=== PATIENT | male | born 1940 | race Caucasian/White ===

== ENCOUNTER 2018-05-15 14:32 | Observation (INO) | payer MEDICARE, BC ==
--- NOTE | 2018-05-15 15:08 | ED ---
General Adult HPI <PipoAv - Last Filed: 05/15/18 16:10> - General Source: patient, RN notes reviewed Mode of arrival: ambulatory Limitations: no limitations <Chandrakant Reyes - Last Filed: 05/15/18 16:29> - General Chief complaint: Urogenital Stated complaint: Male Time Seen by Provider: 05/15/18 14:56 - History of Present Illness Initial comments: Patient 77-year-old male presenting to emergency room today transferred from [facility] for urinary obstruction. Patient admits that he had not had a bowel movement in 5 or 6 days. He states that he was urinating just small amounts. Patient states that he went to [facility] had a CAT scan obtained. He states that they did place a Wynn catheter. He states he was able have a bowel movement here in the hospital. He states that is feeling much better at this time. He denies any pain or symptoms currently. Patient denies any recent fever, chills, shortness of breath, chest pain, back pain, nausea or vomiting, numbness or tingling, headaches or visual changes, or any other complaints. (Chandrakant Reyes) - Related Data Home Medications Medication Instructions Recorded Confirmed Glucosam/Chuckie-Msm1/C/Sabino/Bosw 1 tab PO DAILY 05/15/18 05/15/18 [Glucosamine-Chondroitin Tablet] Loratadine-Pseudoeph 5-120 mg 1 tab PO Q12HR 05/15/18 05/15/18 [Claritin-D 12 HR] Losartan/Hydrochlorothiazide 1 tab PO DAILY 05/15/18 05/15/18 [Losartan-Hctz 100-12.5 mg Tab] Lutein And Zeaxantin 1 tab PO DAILY 05/15/18 05/15/18 Montelukast [Singulair] 10 mg PO HS 05/15/18 05/15/18 Multivitamin [Men's Multi-Vitamin] 1 tab PO DAILY 05/15/18 05/15/18 Simvastatin [Zocor] 10 mg PO HS 05/15/18 05/15/18 busPIRone HCL 20 mg PO TID 05/15/18 05/15/18 Allergies Allergy/AdvReac Type Severity Reaction Status Date / Time No Known Allergies Allergy Verified 05/15/18 14:45 Review of Systems ROS Other: All systems not noted in ROS Statement are negative. <Av Foss - Last Filed: 05/15/18 16:10> ROS Other: All systems not noted in ROS Statement are negative. <Chandrakant Reyes - Last Filed: 05/15/18 16:29> ROS Statement: Those systems with pertinent positive or pertinent negative responses have been documented in the HPI. Past Medical History Past Medical History: Hyperlipidemia, Hypertension History of Any Multi-Drug Resistant Organisms: None Reported Past Surgical History: Cholecystectomy Past Psychological History: Anxiety Smoking Status: Former smoker Past Alcohol Use History: None Reported Past Drug Use History: None Reported <Chandrakant Reyes - Last Filed: 05/15/18 16:29> General Exam <Av Foss - Last Filed: 05/15/18 16:10> Limitations: no limitations <Chandrakant Reyes - Last Filed: 05/15/18 16:29> - General Exam Comments Initial Comments: General: The patient is awake and alert, in no distress, and does not appear acutely ill. Eye: Extra-ocular movements are intact. No nystagmus. There is normal conjunctiva bilaterally. No signs of icterus. Ears, nose, mouth and throat: There are moist mucous membranes and no oral lesions. Neck: The neck is supple, there is no tenderness or JVD. Cardiovascular: There is a regular rate and rhythm. No murmur, rub or gallop is appreciated. Respiratory: Lungs are clear to auscultation, respirations are non-labored, breath sounds are equal. No wheezes, stridor, rales, or rhonchi. Gastrointestinal: Soft, non-distended, non-tender abdomen without masses or organomegaly noted. There is no rebound or guarding present. No CVA tenderness. Musculoskeletal: Normal ROM, no tenderness. Sensation intact. Strength 5/5. Pulses equal bilaterally 2+. Neurological: A&O x 3. CN II-XII intact, There are no obvious motor or sensory deficits. Coordination appears grossly intact. Speech is normal. Skin: Skin is warm and dry and no rashes or lesions are noted. Psychiatric: Cooperative, appropriate mood & affect, normal judgment. (Chandrakant Reyes) Course <Av Foss - Last Filed: 05/15/18 16:10> <Chandrakant Reyes - Last Filed: 05/15/18 16:29> Vital Signs 05/15/18 14:32 Temperature 98.3 F Pulse Rate 76 Respiratory 18 Rate Blood Pressure 176/83 O2 Sat by Pulse 92 L Oximetry - Reevaluation(s) Reevaluation #1: 05/15/18 15:[address] report from [facility] shows 1. Enlargement of the prostate gland with bladder outlet obstruction and marked dilation of the urinary bladder with stasis of urine in the renal collecting system with resultant hydronephrosis. There is some palpitations within the urinary bladder which may be hemorrhagic or infectious bruits. There is a left-sided posterior bladder diverticulum. 2. Colonic diverticulosis without diverticulitis. There are air-fluid levels within the colon consistent with a nonspecific colitis or ileitis. Patient's CT reviewed and shows a 14,000 white count. BUN/creatinine were 45 and 1.9 respectively. (Chandrakant Reyes) Medical Decision Making - Lab Data Result diagrams: 05/15/18 15:40 05/15/18 15:40 <Av Foss - Last Filed: 05/15/18 16:10> - Lab Data Result diagrams: 05/15/18 15:40 05/15/18 15:40 <Chandrakant Reyes - Last Filed: 05/15/18 16:29> - Medical Decision Making Patient reevaluated by myself, Dr. Foss. Patient resting comfortably in bed. Abdomen soft and nontender. Patient states he feels much better since Wynn catheter insertion. Chart from [facility] was reviewed. Patient and family were updated on results. Case was discussed in detail with Dr. Serrato, who will admit for observation, no consults at this time. He states patient will likely follow-up with urology if being discharged tomorrow. I did review and agree with PA findings. This includes diagnostic interpretations treatment plan. ( Av Foss) - Lab Data Lab Results 05/15/18 05/15/18 05/15/18 Range/Units 15:40 15:40 15:40 WBC 11.2 H (3.8-10.6) k/uL RBC 4.93 (4.30-5.90) m/uL Hgb 14.5 (13.0-17.5) gm/dL Hct 44.4 (39.0-53.0) % MCV 90.0 (80.0-100.0) fL MCH 29.5 (25.0-35.0) pg MCHC 32.8 (31.0-37.0) g/dL RDW 12.7 (11.5-15.5) % Plt Count 309 (150-450) k/uL Neutrophils % 75 % Lymphocytes % 13 % Monocytes % 8 % Eosinophils % 2 % Basophils % 1 % Neutrophils # 8.3 H (1.3-7.7) k/uL Lymphocytes # 1.5 (1.0-4.8) k/uL Monocytes # 0.9 (0-1.0) k/uL Eosinophils # 0.2 (0-0.7) k/uL Basophils # 0.1 (0-0.2) k/uL PT 9.6 (9.0-12.0) sec INR 1.0 (<1.2) APTT 19.4 L (22.0-30.0) sec Sodium 138 (137-145) mmol/L Potassium 4.2 (3.5-5.1) mmol/L Chloride 100 (98-107) mmol/L Carbon Dioxide 26 (22-30) mmol/L Anion Gap 12 mmol/L BUN 40 H (9-20) mg/dL Creatinine 1.74 H (0.66-1.25) mg/dL Est GFR (CKD-EPI)AfAm 43 (>60 ml/min/1.73 sqM) Est GFR (CKD-EPI)NonAf 38 (>60 ml/min/1.73 sqM) Glucose 102 H (74-99) mg/dL Calcium 8.8 (8.4-10.2) mg/dL Total Bilirubin 0.9 (0.2-1.3) mg/dL AST 28 (17-59) U/L ALT 43 (21-72) U/L Alkaline Phosphatase 77 (38-126) U/L Total Protein 6.7 (6.3-8.2) g/dL Albumin 3.9 (3.5-5.0) g/dL Urine Color Urine Appearance (Clear) Urine pH (5.0-8.0) Ur Specific [place] (1.001-1.035) Urine Protein (Negative) Urine Glucose (UA) (Negative) Urine Ketones (Negative) Urine Blood (Negative) Urine Nitrite (Negative) Urine Bilirubin (Negative) Urine Urobilinogen (<2.0) mg/dL Ur Leukocyte Esterase (Negative) Urine RBC (0-5) /hpf Ur Squamous Epith Cells (0-4) /hpf Urine Bacteria (None) /hpf Urine Mucus (None) /hpf 05/15/18 Range/Units 15:40 WBC (3.8-10.6) k/uL RBC (4.30-5.90) m/uL Hgb (13.0-17.5) gm/dL Hct (39.0-53.0) % MCV (80.0-100.0) fL MCH (25.0-35.0) pg MCHC (31.0-37.0) g/dL RDW (11.5-15.5) % Plt Count (150-450) k/uL Neutrophils % % Lymphocytes % % Monocytes % % Eosinophils % % Basophils % % Neutrophils # (1.3-7.7) k/uL Lymphocytes # (1.0-4.8) k/uL Monocytes # (0-1.0) k/uL Eosinophils # (0-0.7) k/uL Basophils # (0-0.2) k/uL PT (9.0-12.0) sec INR (<1.2) APTT (22.0-30.0) sec Sodium (137-145) mmol/L Potassium (3.5-5.1) mmol/L Chloride (98-107) mmol/L Carbon Dioxide (22-30) mmol/L Anion Gap mmol/L BUN (9-20) mg/dL Creatinine (0.66-1.25) mg/dL Est GFR (CKD-EPI)AfAm (>60 ml/min/1.73 sqM) Est GFR (CKD-EPI)NonAf (>60 ml/min/1.73 sqM) Glucose (74-99) mg/dL Calcium (8.4-10.2) mg/dL Total Bilirubin (0.2-1.3) mg/dL AST (17-59) U/L ALT (21-72) U/L Alkaline Phosphatase (38-126) U/L Total Protein (6.3-8.2) g/dL Albumin (3.5-5.0) g/dL Urine Color Yellow Urine Appearance Clear (Clear) Urine pH 6.0 (5.0-8.0) Ur Specific [place] 1.011 (1.001-1.035) Urine Protein 1+ H (Negative) Urine Glucose (UA) Negative (Negative) Urine Ketones Trace H (Negative) Urine Blood Large H (Negative) Urine Nitrite Negative (Negative) Urine Bilirubin Negative (Negative) Urine Urobilinogen <2.0 (<2.0) mg/dL Ur Leukocyte Esterase Moderate H (Negative) Urine RBC 113 H (0-5) /hpf Ur Squamous Epith Cells <1 (0-4) /hpf Urine Bacteria Rare H (None) /hpf Urine Mucus Rare H (None) /hpf Disposition <Av Foss - Last Filed: 05/15/18 16:10> Is patient prescribed a controlled substance at d/c from ED?: No Time of Disposition: 16:29 <Chandrakant Reyes - Last Filed: 05/15/18 16:29> Clinical Impression: Urinary retention, RONNI (acute kidney injury) Disposition: ADMITTED IP TO THIS HOSP Condition: Stable Referrals: Nonstaff,Physician [Primary Care Provider] - 1-2 days
[2018-05-15 15:56] LABS: Basophils # (A) 0.1 k/uL (0-0.2); Basophils % (A) 1 %; Eosinophils # (A) 0.2 k/uL (0-0.7); Eosinophils % (A) 2 %; HCT 44.4 % (39.0-53.0); HGB 14.5 gm/dL (13.0-17.5); Lymphocytes # (A) 1.5 k/uL (1.0-4.8); Lymphocytes % (A) 13 %; MCH 29.5 pg (25.0-35.0); MCHC 32.8 g/dL (31.0-37.0); Mean Platelet Volume 7.2; Monocytes # (A) 0.9 k/uL (0-1.0); Monocytes % (A) 8 %; Neutrophils # (A) 8.3 k/uL (1.3-7.7); Neutrophils % (A) 75 %; Platelet Count 309 k/uL (150-450); RBC 4.93 m/uL (4.30-5.90); RDW 12.7 % (11.5-15.5); WBC 11.2 k/uL (3.8-10.6)
[2018-05-15 15:59] LABS: Appearance,Urine Clear (Clear); Bacteria,Urine Rare /hpf; Bilirubin,Urine Negative (Negative); Blood,Urine Large (Negative); Color,Urine Yellow; Glucose,Urine (UA) Negative (Negative); Ketones,Urine Trace (Negative); Leukocyte Esterase,Urine Moderate (Negative); Mucus,Urine Rare /hpf; Nitrite,Urine Negative (Negative); Protein,Urine 1+ (Negative); RBC,Urine 113 /hpf (0-5); Specific Gravity,Urine 1.011 (1.001-1.035); Squamous Epithelial Cell,Urine <1 /hpf (0-4); Urobilinogen,Urine <2.0 mg/dL (<2.0)
[2018-05-15 16:04] LABS: Albumin 3.9 g/dL (3.5-5.0); Calcium 8.8 mg/dL (8.4-10.2); Potassium 4.2 mmol/L (3.5-5.1); Total Bilirubin 0.9 mg/dL (0.2-1.3); Total Protein 6.7 g/dL (6.3-8.2)
[2018-05-15 16:13] LABS: Prothrombin Time 9.6 sec (9.0-12.0)
[2018-05-15 16:19] LABS: Partial Thromboplastin Time 19.4 sec (22.0-30.0)
[2018-05-15] MEDS ORDERED: ONDANSETRON 4 MG/2 ML VIAL IVP PRN (16:31)
[2018-05-15] MEDS ORDERED: ACETAMINOPHEN TAB 325 MG TAB PO PRN (16:31)
[2018-05-15] MEDS ORDERED: NALOXONE 0.4 MG/ML 1 ML VIAL IV PRN (16:31)
[2018-05-15] MEDS ORDERED: SODIUM CHLORIDE 0.9% 1,000 ML IV ONE (16:31)
[2018-05-15] MEDS ORDERED: MONTELUKAST 10 MG TAB PO SCH (21:00)
[2018-05-16 07:39] LABS: Basophils # (A) 0.1 k/uL (0-0.2); Basophils % (A) 1 %; Eosinophils # (A) 0.3 k/uL (0-0.7); Eosinophils % (A) 4 %; HGB 13.3 gm/dL (13.0-17.5); Lymphocytes # (A) 1.6 k/uL (1.0-4.8); Lymphocytes % (A) 20 %; MCH 29.5 pg (25.0-35.0); MCHC 32.5 g/dL (31.0-37.0); MCV 90.8 fL (80.0-100.0); Mean Platelet Volume 7.3; Monocytes # (A) 0.7 k/uL (0-1.0); Monocytes % (A) 8 %; Neutrophils # (A) 5.4 k/uL (1.3-7.7); Neutrophils % (A) 66 %; Platelet Count 274 k/uL (150-450); RBC 4.51 m/uL (4.30-5.90); RDW 12.5 % (11.5-15.5); WBC 8.2 k/uL (3.8-10.6)
[2018-05-16 08:01] LABS: Calcium 8.3 mg/dL (8.4-10.2); Potassium 4.1 mmol/L (3.5-5.1); Total Bilirubin 0.5 mg/dL (0.2-1.3); Total Protein 5.5 g/dL (6.3-8.2)
[2018-05-16] MEDS ORDERED: TAMSULOSIN 0.4 MG CAP.ER.24H PO SCH (08:30)
[2018-05-16 09:44] VITALS: BP 138/70; PULSE 79
--- NOTE | 2018-05-16 12:27 | HP ---
HISTORY AND PHYSICAL CHIEF COMPLAINT: Abdominal pain. HISTORY OF PRESENT ILLNESS: This 77-year-old white male was transferred in from [facility] where he presented with abdominal pain. He was found to have distended bladder and after it was drained, pain went away and he felt much better. He has never had history of urinary tract infection, prostate disease, etc. REVIEW OF SYSTEMS: He has had no fever, chills, flank pain, nausea, vomiting, diarrhea, etc. Past medical history, family history and personal and social histories are otherwise unremarkable. He takes something for cholesterol and hypertension and uses BuSpar occasionally. He is not allergic to any medication. Does not smoke. PHYSICAL EXAM: Blood pressure is 146/74 with a pulse of 80, respiration 19 and he is afebrile. GENERAL: He appeared to be slender, well developed, well nourished, well preserved for his age. Skin color is normal. Skin is warm, dry. Lymph nodes not enlarged. Head, ears, eyes, nose, mouth, and throat were normal. Neck veins not distended. Thyroid is not enlarged. Chest is clear. Cardiac exam is normal. Abdomen is soft and nontender. IMPRESSION: 1. Urinary retention. 2. Hypertension. 3. Hyperlipidemia. PLAN: 1. PSA. 2. Probably discharge home later today with Wynn catheter and Flomax. MMODL / IJN: [id number] /
[2018-05-16 17:28] VITALS: RESP 16; TEMP 98.6
--- NOTE | 2018-05-17 16:37 | DS ---
DISCHARGE SUMMARY CHIEF COMPLAINT: Abdominal pain and urinary retention. HISTORY OF PRESENT ILLNESS AND PHYSICAL EXAM: Details of this man's history and physical can be found in the initial workup. LABORATORY STUDIES: While he was in a hospital he had laboratory studies, details which can be found in the laboratory section of her chart. COURSE IN HOSPITAL: After admission he was placed on bedrest, started on intravenous fluids and Wynn catheter drainage. He had no further problems and pain completely disappeared. It was felt that he could go home with Wynn catheter in place and he will be sent home on Flomax 0.4 at bedtime. He will follow up in several days either with our office or his own physician. FINAL DIAGNOSES: 1. Abdominal pain. 2. Urinary retention. 3. History of hypertension. 4. Hyperlipidemia. 5. History of chronic kidney disease. OPERATIONS: None. CONSULTATIONS: None. He is improved. KARLOS / ANGIE: [id number] /
== END 2018-05-16 16:24 | disposition home health service (06) ==
LOC: EC 14:32 → 4MS4W 16:11
PROVIDERS: ADMIT Family Medicine; ATTEND Family Medicine
DX: N17.9 Acute kidney failure, unspecified (principal); R10.9 Unspecified abdominal pain; N13.9 Obstructive and reflux uropathy, unspecified; E78.5 Hyperlipidemia, unspecified; Z90.49 Acquired absence of other specified parts of digestive tract; F41.9 Anxiety disorder, unspecified; Z87.891 Personal history of nicotine dependence; I12.9 Hypertensive chronic kidney disease with stage 1 through stage 4 chronic kidney disease, or unspecified chronic kidney disease; N18.9 Chronic kidney disease, unspecified; Z79.899 Other long term (current) drug therapy
CPT/HCPCS: 96360; 96361 ×2; 99285; 36415; 80053 ×2; 85025 ×2; 85610; 85730; 81001; 87086; G0378 ×2